=== PATIENT | female | born 1995 | race Caucasian/White ===

== ENCOUNTER 2021-07-11 14:42 | Emergency (ER) | payer MEDICAID, SELFPAY ==
[2021-07-11 14:45] VITALS: BP 131/102; PULSE 98; RESP 18; TEMP 36.4; O2SAT 100; BMI 33.2
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
[2021-07-11] MEDS: Diphth,Pertuss(Acell),Tet Vac 0.5 ML Vial IM (15:38)
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
[2021-07-11 17:18] VITALS: BP 121/71; PULSE 86; RESP 16; TEMP 37.2; O2SAT 98
== END 2021-07-11 17:19 | disposition home or self-care (01) ==
PROVIDERS: Emergency Provider Emergency Medicine
DX: S00.81XA Abrasion of other part of head, initial encounter (principal); S80.812A Abrasion, left lower leg, initial encounter; S80.811A Abrasion, right lower leg, initial encounter; S80.12XA Contusion of left lower leg, initial encounter; S80.11XA Contusion of right lower leg, initial encounter; V43.62XA Car passenger injured in collision with other type car in traffic accident, initial encounter; W22.12XA Striking against or struck by front passenger side automobile airbag, initial encounter; Y93.9 Activity, unspecified; Y92.9 Unspecified place or not applicable; Q90.9 Down syndrome, unspecified
CPT/HCPCS: 70450; 70486; 71046; 72125; 73590; 90471; 90715; 99284